=== PATIENT | female | born 1985 | race Two or more races ===

== ENCOUNTER 2017-02-19 21:32 | Emergency (ER) | payer SELFPAY ==
[2017-02-19 21:41] VITALS: BP 109/66; BMI 27.6
[2017-02-19 23:31] LABS: BILIRUBIN,URINE NEGATIVE (NEGATIVE); BLOOD/HEMOGLOBIN,URINE 5+ (NEGATIVE); GLUCOSE, URINE NEGATIVE (NEGATIVE); KETONES,URINE NEGATIVE (NEGATIVE); LEUKOCYTE ESTERASE ,URINE 3+ (NEGATIVE); NITRITES,URINE NEGATIVE (NEGATIVE); PROTEIN,URINE 2+ (NEGATIVE); UROBILINOGEN,URINE NORMAL (NORMAL)
[2017-02-19 23:50] LABS: APPEARANCE,URINE HAZY (CLEAR); BACTERIA,URINE 1+ /HPF (NEGATIVE); COLOR,URINE YELLOW (YELLOW); SQUAMOUS EPITHELIAL CELL,UR FEW /HPF (NEGATIVE)
--- NOTE | 2017-02-19 23:53 | DR.GENAD ---
HPI - PCP Primary Care Physician: NFD - Complaint/Symptoms Chief Complaint Doctors Comments: Patient states that she has had pain in her back for couple months. Denies trauma, she goes up and down stairs a lot. 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 Chief Complaint:: "Has pain urinating and it morales." - Source History Provided: Patient, Other - Mode of Arrival Mode of Arrival: Ambulatory - Timing Onset of Chief Complaint: 02/18/17 PMH - PMH Past Medical History: No Past Surgical History: Yes Surgical History: - Family History History of Family Medical Conditions: Yes Family Medical History: Diabetes Mellitus - Social History Alcohol Use: None Do you use any recreational Drugs:: No - infectious screening Have you traveled outside the country in the last 6 months?: No ROS - Review of Systems Constitutional: No Symptoms Reported Eyes: No Symptoms Reported ENTM: No Symptoms Reported Respiratoy: No Symptoms Reported Cardiovascular: No Symptoms Reported Gastrointestinal/Abdominal: No Symptoms Reported Genitourinary: Dysuria, Frequency Neurological: No Symptoms Reported Musculoskeletal: Back Pain Integumentary: No Symptoms Reported Hematologic/Lymphatic: No Symptoms Reported Endocrine: No Symptoms Reported Psychiatric: No Symptoms Reported All Other Systems: Reviewed and Negative PE - Vital Signs Vitals: Temperature 99.9 F Pulse Rate 73 Respiratory Rate 20 Blood Pressure 109/66 O2 Sat by Pulse Oximetry 98 - General Limitations: Language Barrier General Appearance: Alert, In No Apparent Distress - Head Head Exam: Normal Inspection, Atraumatic - Eyes Eye exam: Normal Appearance, PERRL, EOMI - ENT ENT Exam: Normal Exam External Ear Exam: Normal External Inspection TM/Canal Exam: Bilateral Normal Nose Exam: Normal Nose Exam, Sinus Tenderness Mouth Exam: Normal Inspection Throat Exam: Normal Inspection - Neck Neck Exam: Normal Inspection, Full ROM - Chest Chest Inspection: Normal Inspection - Respiratory Respiratory Exam: Normal Lung Sounds Bilat Respiratory Exam: Bilateral Clear to Auscultation - Cardiovascular Cardiovascular Exam: Regular Rate, Normal Rhythm - Abdominal Exam Abdominal Exam: Normal Inspection, Normal Bowel Sounds Abdominal Tenderness: negative: RUQ, RLQ, LUQ, LLQ, Epigastrium, Suprapubic, Diffuse, Mild, Moderate, Severe, Other - Extremities Extremities Exam: Normal Inspection, Full ROM - Back Back Exam: Normal Inspection, Tenderness (lumbar area) - Neurologic Neurological Exam: Alert, Oriented X3, CN II-XII Intact - Psychiatric Psychiatric Exam: Normal Affect - Skin Skin Exam: Warm, Dry, Intact ROR - Labs Reviewed Laboratory Results Reviewed?: Yes (Urine 5+ Bld, 3+Leukocytes; 40-50 WBC) Laboratory: Specimen Type Clean catch urine 02/19/17 23:18 Urine Color Yellow (YELLOW) 02/19/17 23:18 Urine Appearance Hazy (CLEAR) 02/19/17 23:18 Urine pH 5.0 (5.0 - 8.0) 02/19/17 23:18 Ur Specific [place] 1.005 (1.000-1.030) 02/19/17 23:18 Urine Protein 2+ (NEGATIVE) 02/19/17 23:18 Urine Glucose (UA) Negative (NEGATIVE) 02/19/17 23:18 Urine Ketones Negative (NEGATIVE) 02/19/17 23:18 Urine Occult Blood 5+ (NEGATIVE) 02/19/17 23:18 Urine Nitrite Negative (NEGATIVE) 02/19/17 23:18 Urine Bilirubin Negative (NEGATIVE) 02/19/17 23:18 Urine Urobilinogen Normal (NORMAL) 02/19/17 23:18 Ur Leukocyte Esterase 3+ (NEGATIVE) 02/19/17 23:18 Urine RBC 4-8 /HPF (NEGATIVE) 02/19/17 23:18 Urine WBC 40-50 /HPF (NEGATIVE) 02/19/17 23:18 Ur Squamous Epith Cells Few /HPF (NEGATIVE) 02/19/17 23:18 Urine Bacteria 1+ /HPF (NEGATIVE) 02/19/17 23:18 Ur Culture Indicated? Yes/culture set up 02/19/17 23:18 - Diagnosis Discharge Problem: UTI (urinary tract infection) Qualifiers: Urinary tract infection type: acute cystitis Hematuria presence: with hematuria Qualified Code(s): N30.01 - Acute cystitis with hematuria - Discharge Plan Condition: Stable - Follow ups/Referrals Follow ups/Referrals: NFD,None [Primary Care Provider] - 3 days - Instructions
== END 2017-02-20 00:46 | disposition home or self-care (01) ==
LOC: ER 21:47
DX: N30.01 Acute cystitis with hematuria (principal)
CPT/HCPCS: 81001; 87086; 99282